=== PATIENT | female | born 1935 | race Caucasian/White ===

== ENCOUNTER 2016-09-07 05:41 | Day surgery (SDC) | payer MEDICARE ==
[~2016-09-07] VITALS: Ht 160 cm; Wt 67.7 kg
[~2016-09-07 05:41] MED LIST: ASPI81TA82 PO; ATOR20TA PO; COZA100T PO; GNP50LIQ PO; PROBCAP4 PO
[2016-09-07] MEDS ORDERED: ATOR20TA15 PO (06:39)
[2016-09-07] MEDS ORDERED: LOSA100T PO (06:39)
[2016-09-07 06:45] VITALS: BP 158/69; PULSE 46; RESP 20; TEMP 97.8; O2SAT 98
[2016-09-07] MEDS ORDERED: ceFAZolin 2 GM PREMIX 50 ML IV SCH (06:45)
[2016-09-07] MEDS ORDERED: fentaNYL CITRATE 250 MCG/5 ML AMP ONE (07:48)
[2016-09-07] MEDS ORDERED: MIDAZOLAM HCL 5 MG/5 ML VIAL ONE (07:48)
[2016-09-07] MEDS ORDERED: LIDOCAINE 1%/EPINEPHrine 1:100,000 SOLN 20 ML VIAL ONE (07:54)
[2016-09-07 08:45] VITALS: BP 158/69; PULSE 46; RESP 20; TEMP 97.8; O2SAT 98
[2016-09-07 09:00] VITALS: BP 113/59; PULSE 47; RESP 20; O2SAT 98
[2016-09-07 09:30] VITALS: BP 119/52; PULSE 49; RESP 20; O2SAT 97
[2016-09-07 10:00] VITALS: BP 130/56; PULSE 47; RESP 20; O2SAT 93
[2016-09-07 10:30] VITALS: BP 134/69; PULSE 46; RESP 20; O2SAT 95
[2016-09-07] MEDS ORDERED: SODIUM CHLORIDE 0.9% FLUSH 10 ML FLUSH IVF PRN (11:15)
--- NOTE | 2016-09-07 15:20 | RADRPT ---
EXAM DATE/TIME: 09/07/2016 07:23 [place] COMPARISON: No previous studies available for comparison. INDICATIONS : Patient with history of Ovarian cancer. Finished treatment. MEDICAL HISTORY : 1. heart murmur 2. HTN 3. ischemic colitis 4. vertebral compression fx 5. hypercholesetermia SURGICAL HISTORY : 1. Hysterectomy 2. rt salpingo - oophorectomy 3. cholecystectomy 4. appendectomy 5. tonsillectomy ENCOUNTER: Initial ACUITY: 2 months PAIN SCORE: 0/10 SEDATION TIME: 30 minutes 1.) 3 mg midazolam (Versed) IV 2.) 150 mcg fentanyl (Sublimaze) IV Prophylactic antibiotics were administered with appropriate pre-procedure timing. Vancomycin within 2 hrs of procedure, Ancef (or alternative) within 1 hr of procedure. PROCEDURE : 1. Removal of [id number]. 2. Conscious sedation with continuous EKG and oximetry monitoring. The risk, benefits and potential complications of [id number] removal were discussed. Written conse nt was obtained. The patient was placed supine. The chest wall was prepped in sterile fashion. Full sterile techniqu e was used, including cap, mask, sterile gloves and gown, and a large sterile sheet. Hand hygiene an d 2% chlorhexidine and/or Betadine/alcohol prep was utilized per protocol for cutaneous antisepsis. The skin and subcutaneous tissues were infiltrated with local anesthetic solution. A small incision w as made, the subcutaneous pocket was opened. The port was dissected from the subcutaneous tissues and easily removed in one piece. The pocket incision was closed with subcuticular Vicryl suture. Steri -Strips were applied. Conscious sedation was performed with the prescribed dosages and duration as above in the presence of an independent trained radiology nurse to assist in the monitoring of the patient. EKG and oximetry remained stable throughout the procedure. The patient tolerated the procedure well and there were no complications. The patient was sent to post anesthesia recovery in stable condition. CONCLUSION: Uncomplicated port removal as above. Fermin Leung MD on September 07, 2016 at 15:18 Board Certified Radiologist. This report was verified electronically.
== END 2016-09-07 10:35 | disposition home or self-care (01) ==
LOC: HROP 05:41 → HRIP 05:41 → HROP 10:35
PROVIDERS: ATTEND Obstetrics & Gynecology Gynecologic Oncology
DX: Z45.2 Encounter for adjustment and management of vascular access device (principal); C56.9 Malignant neoplasm of unspecified ovary; I10 Essential (primary) hypertension; E78.00 Pure hypercholesterolemia, unspecified
CPT/HCPCS: 36590; 99152; 99153; J0690; J2250; J3010